=== PATIENT | male | born 1970 | race Two or more races ===

== ENCOUNTER 2018-01-22 09:00 | Inpatient (IN) | payer OTHER ==
[~2018-01-22] VITALS: Ht 177.8 cm; Wt 88.2 kg
[2018-01-22] MEDS ORDERED: SODIUM CHLORIDE 0.9% 1,000 ML IV ONE ×2 (09:23→14:11)
[2018-01-22] MEDS ORDERED: IOHEXOL 350 MG/ML 100ML IJ ONE (09:26)
[2018-01-22] MEDS ORDERED: ASPirin 81 mg TAB PO ONE (09:30)
[2018-01-22 09:56] LABS: Basophils # (auto) 0 uL; Basophils % (auto) 0.3 % (0.0-2.0); Eosinophils # (auto) 0.1 uL; Eosinophils % (auto) 1.2 % (0.0-7.0); Hematocrit 50.9 % (41.0-53.0); Lymphocytes # (auto) 5.5 uL; Lymphocytes % (auto) 54.3 % (10.0-50.0); Mean Corpuscular Hemoglobin 31.8 pg (28.0-32.0); Mean Corpuscular Hgb Conc. 33.3 g/dL (32.0-36.0); Mean Corpuscular Volume 95.5 fL (80.0-100.0); Monocytes # (auto) 0.3 uL; Monocytes % (auto) 2.8 % (0.0-12.0); Neutrophils # (auto) 4.2 uL; Neutrophils % (auto) 41.4 % (37.0-80.0); Nucleated Red Blood Cells % 0.1 %; Platelet Count (auto) 343 10^3/uL (140-450); Red Blood Cells 5.33 10^6/uL (4.5-5.90); Red Cell Distribution Width 13.6 % (11.8-14.3); White Blood Cell 10.1 10^3/uL (4.4-10.8)
[2018-01-22 10:13] LABS: INR 1.05 (0.9-1.15); Partial Thromboplastin Time 23.1 sec (23.78-33.04); Prothrombin Time 11.2 sec (9.27-12.13)
[2018-01-22 10:15] LABS: Albumin 4.2 g/dL (3.4-5.0); BUN/Creatinine Ratio 10.5; Bilirubin, Total 0.7 mg/dL (0.2-1.0); Calcium 8.5 mg/dL (8.5-10.1); Potassium 3.5 mmol/L (3.5-5.1); Total Protein 8.2 g/dL (6.4-8.2)
[2018-01-22 11:20] LABS: Alcohol, Urine < 3.0 mg/dL (0-5); Amphetamine Screen, Urine NEGATIVE (NEGATIVE); Barbiturate Scree,Urine NEGATIVE (NEGATIVE); Benzodiazephine Screen, Urine NEGATIVE (NEGATIVE); Cannabinoid Screen, Urine NEGATIVE (NEGATIVE); Cocaine Screen, Urine NEGATIVE (NEGATIVE); Opiate Scree,Urine NEGATIVE (NEGATIVE); Phencyclidine Screen, Urine NEGATIVE (NEGATIVE)
[2018-01-22 13:37] LABS: Lactic Acid w/Reflex 2.3 mmol/L (0.4-2.0)
[2018-01-22] MEDS ORDERED: MORPHINE SULF INJ 2 MG/ML SYRINGE 1ML IV PRN ×2 (15:15)
[2018-01-22] MEDS ORDERED: TEMAZEPAM 15 MG CAP PO PRN (15:15)
[2018-01-22] MEDS ORDERED: LACTULOSE 20Gm/30ML SOLN PO PRN (15:15)
[2018-01-22] MEDS ORDERED: HYDROcodone-ACET 5/325MG TAB PO PRN (15:15)
[2018-01-22] MEDS ORDERED: LORazepam 0.5 MG TAB PO PRN (15:15)
[2018-01-22] MEDS ORDERED: DEXTROSE (50%) 50ML SYRG IV PRN (15:15)
[2018-01-22] MEDS ORDERED: PROMETHAZINE HCL 25 MG/ML 1ML IV PRN (15:15)
[2018-01-22] MEDS ORDERED: NITROGLYCERIN 0.4 MG SL TAB SL PRN (15:15)
[2018-01-22] MEDS: SODIUM CHLORIDE 0.9% 1,000 ML IV SCH ×3 (15:26→18:42)
[2018-01-22 15:58] LABS: Folate (Folic Acid) 14.89 ng/mL (5.38-24)
[2018-01-22 16:30] VITALS: BP 141/97
[2018-01-22 16:50] VITALS: BP 141/97
[2018-01-22] MEDS: ACCU-CHEK COMFORT CURVE STRIP VI SCH (18:00)
[2018-01-22 19:27] VITALS: BP 141/97
[2018-01-22] MEDS ORDERED: LORazepam 2MG/ML-1ML VIAL IV PRN (19:30)
[2018-01-22 20:00] VITALS: BP 127/84
[2018-01-22] MEDS: ACETAMINOPHEN 500 MG TAB PO PRN (20:56)
[2018-01-22] MEDS: ATORVASTATIN 20 MG TAB PO SCH (21:42)
[2018-01-22 22:05] VITALS: BP 127/84
[2018-01-23] VITALS (7 sets, daily range): BP systolic 135–149; BP diastolic 84–95
[2018-01-23] MEDS: ACCU-CHEK COMFORT CURVE STRIP VI SCH ×4 (06:00→17:43)
[2018-01-23 06:18] LABS: Albumin 3.6 g/dL (3.4-5.0); BUN/Creatinine Ratio 11.8; Bilirubin, Total 0.6 mg/dL (0.2-1.0); Potassium 3.9 mmol/L (3.5-5.1); Total Protein 7.1 g/dL (6.4-8.2)
[2018-01-23 07:41] LABS: Urine Bacteria NONE SEEN /hpf (None Seen); Urine Blood Negative /uL (Negative); Urine Mucus FEW (None Seen); Urine Specific Gravity 1.009 (1.001-1.035); Urine WBC 1 /hpf (0 - 3)
[2018-01-23] MEDS: PANTOPRAZOLE 40 MG TAB PO SCH (09:56)
[2018-01-23] MEDS: ASPirin 81 mg TAB PO SCH (09:56)
[2018-01-23] MEDS: ACETAMINOPHEN 500 MG TAB PO PRN (14:12)
[2018-01-23 16:00] LABS: Cholesterol 217 mg/dL (< 200); HDL Cholesterol 29 mg/dL (40-59); LDL Cholesterol 151 mg/dL (< 100); Triglycerides 251 mg/dL (< 150)
[2018-01-23] MEDS: SODIUM CHLORIDE 0.9% 1,000 ML IV SCH (21:09)
[2018-01-23] MEDS: ATORVASTATIN 20 MG TAB PO SCH (22:13)
[2018-01-24 05:00] VITALS: BP 148/102
[2018-01-24] MEDS: ACCU-CHEK COMFORT CURVE STRIP VI SCH ×2 (06:00)
[2018-01-24 09:00] VITALS: BP 142/100
[2018-01-24] MEDS: ASPirin 81 mg TAB PO SCH (10:14)
[2018-01-24] MEDS: SODIUM CHLORIDE 0.9% 1,000 ML IV SCH ×2 (10:14→17:09)
[2018-01-24] MEDS: METOPROLOL TARTRATE 25 MG TAB PO SCH ×2 (10:15→21:22)
[2018-01-24] MEDS: PANTOPRAZOLE 40 MG TAB PO SCH (10:15)
[2018-01-24] MEDS ORDERED: LORATADINE 10 MG TAB PO ONE (11:15)
[2018-01-24 13:00] VITALS: BP 151/96
[2018-01-24 17:00] VITALS: BP 151/99
[2018-01-24 20:00] VITALS: BP 139/88
[2018-01-24 22:00] VITALS: BP 139/88
[2018-01-24] MEDS ORDERED: ATORVASTATIN 20 MG TAB PO SCH (22:00)
[2018-01-25] MEDS: SODIUM CHLORIDE 0.9% 1,000 ML IV SCH ×2 (03:09→13:09)
[2018-01-25 05:06] VITALS: BP 127/82
[2018-01-25 09:00] VITALS: BP 145/92
[2018-01-25] MEDS ORDERED: LORATADINE 10 MG TAB PO SCH (10:00)
[2018-01-25] MEDS: ASPirin 81 mg TAB PO SCH (10:05)
[2018-01-25] MEDS: METOPROLOL TARTRATE 25 MG TAB PO SCH (10:05)
[2018-01-25] MEDS: PANTOPRAZOLE 40 MG TAB PO SCH (10:06)
[2018-01-25 13:00] VITALS: BP 150/92
== END 2018-01-25 17:10 | disposition short-term general hospital (02) | DRG 65 ==
LOC: ER 09:00 → EDBD 09:00 → TELE 09:01 → TELE-WESTW 16:07
PROVIDERS: ADMIT Internal Medicine; ATTEND Internal Medicine
PROC: 5A09357 Assistance with Respiratory Ventilation, Less than 24 Consecutive Hours, Continuous Positive Airway Pressure (ICD-10-PCS; principal; 2018-01-22)
PROC: 5A09357 Assistance with Respiratory Ventilation, Less than 24 Consecutive Hours, Continuous Positive Airway Pressure (ICD-10-PCS; 2018-01-23)
DX: I63.9 Cerebral infarction, unspecified (principal); G81.94 Hemiplegia, unspecified affecting left nondominant side; E66.9 Obesity, unspecified; G47.10 Hypersomnia, unspecified; I10 Essential (primary) hypertension; N28.1 Cyst of kidney, acquired; W19.XXXA Unspecified fall, initial encounter; R16.0 Hepatomegaly, not elsewhere classified; R26.2 Difficulty in walking, not elsewhere classified; R41.82 Altered mental status, unspecified; E11.65 Type 2 diabetes mellitus with hyperglycemia; E78.5 Hyperlipidemia, unspecified; K76.0 Fatty (change of) liver, not elsewhere classified; R55 Syncope and collapse; H53.9 Unspecified visual disturbance; I63.8 Other cerebral infarction; Z68.27 Body mass index [BMI] 27.0-27.9, adult; Z82.49 Family history of ischemic heart disease and other diseases of the circulatory system; Z83.3 Family history of diabetes mellitus
CPT/HCPCS: 36415; 70450; 71275; 74176; 80053; 80061; 80307; 81001; 82550; 82607; 82746; 82962; 83036; 83605; 84443; 84484; 85025; 85610; 85652; 85730; 87040; 93005; 93306; 93886; 94660; 95819; 96360; 96361